=== PATIENT | female | born 1965 | race Caucasian/White ===

== ENCOUNTER 2021-01-29 18:55 | Emergency (ER) | payer OTHER ==
[~2021-01-29 18:55] MED LIST: B-1100 MG PO; BENTYL10 MG PO; CATAPRES0.1 MG PO; CERTAGEN1 EACH PO; FLUCONAZOLE100 MG PO; INDERAL LA160 MG PO; KEFLEX500 MG PO; NORCO 5-325 TA1 EACH PO; NORVASC5 MG PO; PHENERGAN25 M1 PO; PREDNISONE 10MG10 MG PO; PREDNISONE 20MG20 MG PO; PRINIVIL20 MG PO; PROZAC20 MG PO; ROBITUSSIN DM10 ML PO; SYMBICORT 16010.2 GM INH; SYNTHROID25 MCG PO; VENTOLIN (2.5 MG/3 M NEB; ZOFRAN ODT4 MG SL; ZOFRAN8 MG PO
[2021-01-30 01:26] LABS: BASOPHIL 1.1 % (0-2); EOSINOPHIL 1.4 % (0-5); HCT 46.7 % (37.0-47.0); LYMPHOCYTE 31.4 % (15-48); MCH 31.6 pg (25.0-31.0); MCHC 34.3 g/dL (32.0-36.0); MCV 92.3 fL (78.0-100.0); MONOCYTE 5.6 % (0-12); MPV 11.4 fL (6.0-9.5); NEUTROPHIL 60.2 % (41-80); NRBC 0; PLT 242 K/uL (150-400); RBC 5.06 M/uL (4.20-5.40); RDW 13.4 % (11.5-14.0)
[2021-01-30 01:33] LABS: WBC 13.1 K/uL (4.0-10.5)
[2021-01-30 01:36] LABS: INR 1.04 (0.9-1.2); PROTHROMBIN TIME 12.9 SECONDS (11.4-13.6); PTT 31.2 SECONDS (22.2-34.7)
[2021-01-30 02:14] LABS: ALBUMIN 3.8 g/dL (3.4-5.0); BILIRUBIN - TOTAL 0.8 mg/dL (0.2-1.0); BUN/CREAT RATIO (CALC) 25.4 RATIO; C-REACTIVE PROTEIN 1.5 mg/dL (<=0.90); CREATININE 0.63 mg/dL (0.51-0.95); GLOBULIN (CALCULATION) 3.9 g/dL; POTASSIUM 3.5 mmol/L (3.5-5.1); TOTAL PROTEIN 7.7 g/dL (6.4-8.2)
[2021-01-30 02:27] LABS: BILIRUBIN NEGATIVE (NEGATIVE); BLOOD NEGATIVE Ery/uL (NEGATIVE); CLARITY CLEAR (CLEAR); COLOR YELLOW (YELLOW); GLUCOSE (U) NORMAL (NORMAL); LEUKOCYTES NEGATIVE Leu/uL (NEGATIVE); NITRITE NEGATIVE (NEGATIVE); PROTEIN NEGATIVE (NEGATIVE); UROBILINOGEN 0.2 mg/dL (0.2-1.0)
[2021-01-30] MEDS ORDERED: MEDROL 4MG DOSEP4 MG PO (02:57)
[2021-01-30] MEDS ORDERED: ROBAXIN750 MG PO (02:57)
[2021-01-30] MEDS ORDERED: NORCO 5-325 TA1 EACH PO (02:57)
[2021-05-12] MEDS ORDERED: NEURONTIN300 MG PO (11:28)
== END 2021-01-30 03:50 | disposition home or self-care (01) ==
LOC: FER 18:55
PROVIDERS: Emergency Medicine
DX: M47.817 Spondylosis without myelopathy or radiculopathy, lumbosacral region (principal); M54.41 Lumbago with sciatica, right side; I10 Essential (primary) hypertension; E11.9 Type 2 diabetes mellitus without complications; F17.210 Nicotine dependence, cigarettes, uncomplicated; Z79.899 Other long term (current) drug therapy; Z79.84 Long term (current) use of oral hypoglycemic drugs
CPT/HCPCS: 36415; 72131; 80053; 81003; 84145; 85025; 85610; 85730; 86140; J1170; J2405; J7030